=== PATIENT | male | born 1945 | race Hispanic/Latino ===

== ENCOUNTER → 2024-05-08 | Outpatient (CLI) | payer OTHER ==
[~2024-05-08] MED LIST: IOHEXOL 350 MG/ML 100ML INFUS..BTL IV ONE
--- NOTE | 2024-05-08 10:48 | HMCIMG ---
CT ABDOMEN W/WO 3 PHASE HISTORY: Adrenal gland mass COMPARISON: None TECHNIQUE: Multiple sequential axial images of the abdomen were obtained from the dome of the diaphragm through iliac crests. Patient was given 100 cc of Omnipaque through intravenous route. Oral contrast was not given. Dynamic imaging technique was used. FINDINGS: No pleural effusion is seen bilaterally. There is no evidence of parenchymal disease or pulmonary nodule of the visualized lower lungs. Degenerative changes are seen of the thoracolumbar spine. Coronary arterial calcifications are seen. Liver is enlarged with fatty changes measuring 17 cm. There is left adrenal mass complex in nature measuring 5.2 x 5 cm. There is no previous study available for comparison. The liver, spleen, adrenal glands and pancreas are unremarkable. There is no evidence of hydronephrosis bilaterally. No evidence of renal stone is seen. There is mild diverticulosis. Fecal material is seen in the colon. There are normal-sized retroperitoneal and mesenteric lymph nodes. No ascites is seen. Atherosclerotic changes are present. IMPRESSION: 1. Large left adrenal mass measuring 5.[address] was performed with one or more following dose reduction techniques: automated exposure control, adjustment of the mA and kv according to patient's size, or use of a iterative reconstruction technique.
== END | disposition home or self-care (01) ==
LOC: RAH 08:28
PROVIDERS: ATTEND Surgery
DX: E27.8 Other specified disorders of adrenal gland (principal); R19.09 Other intra-abdominal and pelvic swelling, mass and lump; K57.90 Diverticulosis of intestine, part unspecified, without perforation or abscess without bleeding; I25.10 Atherosclerotic heart disease of native coronary artery without angina pectoris; K76.0 Fatty (change of) liver, not elsewhere classified; I70.90 Unspecified atherosclerosis; M47.815 Spondylosis without myelopathy or radiculopathy, thoracolumbar region
CPT/HCPCS: 74170; Q9967